=== PATIENT | female | born 1995 | race American Indian/Alaskan Native ===

== ENCOUNTER 2018-03-09 23:18 | Emergency (ER) | payer SELFPAY ==
[2018-03-09 23:54] VITALS: BP 135/84
[2018-03-10] MEDS ORDERED: SOLU-Medrol ONE (04:13)
[2018-03-10] MEDS ORDERED: DUONEB *Not for PRN Use IH ONE ×2 (04:13)
[2018-03-10] MEDS ORDERED: SOLU-Medrol IM ONE (04:15)
[2018-03-10] MEDS: PROVENTIL IH ONE ×2 (04:15→06:12)
--- NOTE | 2018-03-10 04:19 | Emergency Department Report ---
ED Asthma HPI - General Chief Complaint: Adult Asthma Stated Complaint: ASTHMA Time Seen by Provider: 03/10/18 04:15 Source: patient Mode of arrival: Ambulatory Limitations: No Limitations - History of Present Illness Initial Comments: 23-year-old -[place] female comes to the emergency room reporting that she was seen yesterday at [place] for asthma attack. Patient puts that she was unable to get her inhaler and continued to feel shortness of breath. She has a history of asthma. MD Complaint: wheezing -: days(s) (2) Severity: moderate Context: ran out of meds, smoke exposure - Related Data Current Asthma Therapy: none Allergies Allergy/AdvReac Type Severity Reaction Status Date / Time pollen extracts Allergy Unknown Verified 03/10/18 00:34 ED Review of Systems ROS: Stated complaint: ASTHMA Other details as noted in HPI Constitutional: denies: chills, fever Eyes: denies: eye pain, eye discharge, vision change ENT: denies: ear pain, throat pain Respiratory: cough, shortness of breath, wheezing ED Past Medical Hx - Past Medical History Hx Asthma: Yes - Social History Smoking Status: Never Smoker ED Physical Exam - General Limitations: No Limitations General appearance: alert, in no apparent distress - Eye Eye exam: Present: EOMI - ENT ENT exam: Present: mucous membranes moist - Neck Neck exam: Present: normal inspection, full ROM - Respiratory Respiratory exam: Present: wheezes - Cardiovascular Cardiovascular Exam: Present: regular rate, normal rhythm. Absent: systolic murmur, diastolic murmur, rubs, gallop - GI/Abdominal GI/Abdominal exam: Present: soft, normal bowel sounds - Neurological Exam Neurological exam: Present: alert, oriented X3 - Psychiatric Psychiatric exam: Present: normal affect, normal mood - Skin Skin exam: Present: warm, dry, intact, normal color. Absent: rash ED Course Vital Signs 03/09/18 03/10/18 23:47 00:30 Temperature 98.1 F 98.1 F Pulse Rate 72 69 Respiratory 18 Rate Blood Pressure 135/84 135/84 O2 Sat by Pulse 98 98 Oximetry - Reevaluation(s) Reevaluation #1: 03/10/18 05:11 Since moving air much better. ED Medical Decision Making - Medical Decision Making Patient has been evaluated by this provider in fast track. Dual neb solder Medrol 125 mg given to patient. Critical care attestation.: If time is entered above; I have spent that time in minutes in the direct care of this critically ill patient, excluding procedure time. ED Disposition Clinical Impression: Asthma Qualifiers: Asthma severity: unspecified severity Asthma persistence: unspecified Asthma complication type: with acute exacerbation Qualified Code(s): J45.901 - Unspecified asthma with (acute) exacerbation Disposition: TO HOME OR SELFCARE Is pt being admited?: No Does the pt Need Aspirin: No Condition: Stable Instructions: Asthma (ED) Additional Instructions: Please last picker your inhaler from the pharmacy. Please use it as is prescribed. Follow-up with the primary care provider Referrals: PRIMARY CARE [Primary Care Provider] - 3-5 Days [facility] [Provider Group] - 3-5 Days Forms: Work/School Release Form(ED)
== END 2018-03-10 05:12 | disposition home or self-care (01) ==
LOC: ED 23:18
DX: J45.901 Unspecified asthma with (acute) exacerbation (principal); Z91.030 Bee allergy status
CPT/HCPCS: 96372; 99281; J2930